=== PATIENT | male | born 1950 | race Caucasian/White ===

== ENCOUNTER 2023-10-19 00:10 | Inpatient (IN) | payer BC ==
[2023-10-19] VITALS (10 sets, daily range): BP systolic 103–139; BP diastolic 57–100; PULSE 129–146; RESP 16–20; TEMP 97.8–98.8; O2SAT 96–97
[~2023-10-19] VITALS: Ht 185.4 cm; Wt 78.1 kg
[2023-10-19 00:58] LABS: MEAN CORPUSCULAR HEMOGLOBIN 31.4 PG (27.0-31.0)
[2023-10-19 01:00] LABS: BASOPHILS # (AUTO) 0.1 X10'3 (0-0.2); BASOPHILS % (AUTO) 0.8 % (0-1); EOSINOPHILS # (AUTO) 0.1 X10'3 (0-0.9); EOSINOPHILS % (AUTO) 1.4 % (0-6); HEMATOCRIT 38.4 % (42.0-52.0); HEMOGLOBIN 13.1 g/dl (14.0-17.9); LYMPHOCYTES # (AUTO) 1.9 X10'3 (1.1-4.8); LYMPHOCYTES % (AUTO) 22.7 % (21-51); MEAN CORPUSCULAR HGB CONC 34.2 g/dL (33.0-36.5); MEAN CORPUSCULAR VOLUME 91.8 FL (78-98); MEAN PLATELET VOLUME 7.6 FL (7.4-10.4); MONOCYTES # (AUTO) 0.5 X10'3 (0-0.9); MONOCYTES % (AUTO) 6.6 % (2-12); NEUTROPHILS # (AUTO) 5.7 X10'3 (1.8-7.7); NEUTROPHILS % (AUTO) 68.5 % (42-75); PLATELET COUNT 232 X10'3 (140-440); RED BLOOD COUNT 4.18 X10'6 (4.70-6.10); RED CELL DISTRIBUTION WIDTH 13.7 % (11.5-14.5); WHITE BLOOD COUNT 8.3 X10'3 (4.5-11.0)
[2023-10-19 01:07] LABS: PROTHROMBIN TIME 10.5 SECONDS (9.0-12.0)
[2023-10-19 01:10] LABS: ALANINE AMINOTRANSFERASE 19 U/L (12-78); ALBUMIN 2.9 G/DL (3.4-5.0); ALBUMIN/GLOBULIN RATIO 0.7 (1.1-1.5); ALKALINE PHOSPHATASE 60 IU/L (46-116); ANION GAP 9 (8-16); ASPARTATE AMINO TRANSFERASE 13 U/L (10-37); BILIRUBIN,TOTAL 0.3 MG/DL (0.1-1.0); BLOOD UREA NITROGEN 16 MG/DL (7-18); BUN/CREATININE RATIO 15.7 (10.0-20.0); CALCIUM 8.3 MG/DL (8.5-10.1); CHLORIDE 104 MMOL/L (99-107); CREATININE 1.02 MG/DL (0.60-1.10); GLUCOSE 101 MG/DL (70-104); POTASSIUM 3.4 MMOL/L (3.5-5.1); SODIUM 141 MMOL/L (135-145); TOTAL CARBON DIOXIDE 28.1 MMOL/L (24-32); TOTAL PROTEIN 7.2 G/DL (6.4-8.2); eCRCL 70 ML/MIN; eGFR 72 ML/MIN
[2023-10-19] MEDS: diltiazem 5mg/ml 5ml inj. IV ONE ×3 (01:11→13:21)
[2023-10-19] MEDS: diltiazem 30mg tablet PO ONE (01:16)
[2023-10-19 01:18] LABS: PRO BRAIN NATRIURETIC PEPTIDE 3138 PG/ML (0-125)
[2023-10-19] MEDS ORDERED: diltiazem-NS 100mg/100ml 100 ML IV SCH ×2 (01:35→17:20)
[2023-10-19] MEDS: amiodarone 150mg/dext, iso-os 100 ML IV ONE (01:48)
[2023-10-19] MEDS ORDERED: magnesium 2GM in 50ml NS 50 ML IV PRN (03:05)
[2023-10-19] MEDS ORDERED: HYDROcodone/acetaminophen 10/325mg tab PO PRN (03:05)
[2023-10-19] MEDS ORDERED: ondansetron/PF 4mg/2ml inj IV PRN (03:05)
[2023-10-19] MEDS ORDERED: potassium Cl 20 mEq SR tablet PO PRN ×2 (03:05)
[2023-10-19] MEDS ORDERED: magnesium Cl slow-release 64mg tablet PO PRN (03:05)
[2023-10-19] MEDS ORDERED: magnesium 4gm in 100ml NS 100 ML IV PRN (03:05)
[2023-10-19] MEDS ORDERED: potassium Cl 40MEQ/1/2NS 520ml 520 ML IV PRN (03:05)
[2023-10-19] MEDS ORDERED: mag hydrox/Alum hydrox/simeth 30ml oral suspension PO PRN (03:05)
[2023-10-19] MEDS ORDERED: HYDROcodone/acetaminophen 5mg/325mg tablet PO PRN (03:05)
[2023-10-19] MEDS ORDERED: acetaminophen 325mg tablet PO PRN ×2 (03:05)
[2023-10-19] MEDS ORDERED: magnesium hydroxide 30ml (MOM) UD suspension PO PRN (03:05)
[2023-10-19] MEDS ORDERED: CLON0.252 PO (04:50)
[2023-10-19] MEDS ORDERED: LISI40TA13 PO (04:52)
[2023-10-19] MEDS ORDERED: ATOR10TA70 PO (04:53)
[2023-10-19] MEDS ORDERED: AMLO2.5T4 PO (04:54)
[2023-10-19] MEDS ORDERED: TRAZ-256 PO (04:55)
[2023-10-19] MEDS ORDERED: TRAZ150T78 PO (04:55)
[2023-10-19] MEDS ORDERED: MELO-102 PO (04:55)
[2023-10-19] MEDS ORDERED: ASPI-611 PO (04:56)
[2023-10-19] MEDS ORDERED: FLUO30CR36 TOP (04:56)
[2023-10-19] MEDS ORDERED: BUPR100T13 PO (04:58)
[2023-10-19] MEDS ORDERED: NEBI5TAB12 PO (04:58)
[2023-10-19] MEDS ORDERED: MULT-1085 PO (04:59)
[2023-10-19] MEDS: apixaban 5mg tablet PO SCH (05:02)
[2023-10-19 05:11] LABS: CHOL/HDL RATIO 2.3 (0.00-4.99); CHOLESTEROL 145 MG/DL (0-200); FREE T4 (FREE THYROXINE) 1.38 NG/DL (0.73-1.40); HDL CHOLESTEROL 63 MG/DL (35-60); LDL CHOLESTEROL 72 MG/DL (50-100); THYROID STIMULATING HORMONE 3.36 ulU/ml (0.34-4.50); TRIGLYCERIDES 49 MG/DL (20-135)
[2023-10-19] MEDS: amiodarone/D5 360MG/200ML BAG 200 ML IV SCH (05:51)
[2023-10-19] MEDS: furosemide 10 MG/1 ML 10ml inj IV ONE (06:52)
[2023-10-19] MEDS: metoprolol succinate 25mg (24-HOUR) SR. Tablet PO SCH (07:35)
[2023-10-19] MEDS: K and/or MAG REPLACEMENT MC SCH (08:00)
[2023-10-19] MEDS: docusate sod 100mg capsule PO SCH (08:00)
[2023-10-19] MEDS: amLODIPine 5mg tablet PO SCH (08:00)
[2023-10-19] MEDS: lisinopril 20mg tablet PO SCH (08:00)
[2023-10-19] MEDS: aspirin 81mg, enteric-coated 1 TAB TABLET.DR PO SCH (09:09)
[2023-10-19] MEDS: diltiazem-NS 100mg/100ml 100 ML IV SCH ×2 (09:11→17:50)
[2023-10-19] MEDS: atorvastatin 10mg tablet PO SCH (10:09)
[2023-10-19 11:34] LABS: D-DIMER 0.63 MG/L FEU (0-0.50)
[2023-10-19] MEDS ORDERED: iohexol 350MG/ML 100ml bottle IV ONE (13:32)
[2023-10-19] MEDS: traZODone 50mg tablet PO SCH (20:49)
[2023-10-19] MEDS: CLONAZEPAM 0.25 MG oral disentigrating tablet (ODT) PO SCH (21:46)
[2023-10-20] VITALS (10 sets, daily range): BP systolic 91–132; BP diastolic 61–97; PULSE 115–138; RESP 16–26; TEMP 97.8–98.7; O2SAT 95–98
[2023-10-20] MEDS ORDERED: non-formulary drug (Aspirin (Aspir 81) 1 TAB) PO SCH (08:00)
[2023-10-20 08:11] LABS: BASOPHILS % (AUTO) 0.5 % (0-1); EOSINOPHILS % (AUTO) 0.3 % (0-6); HEMATOCRIT 35.3 % (42.0-52.0); HEMOGLOBIN 12.1 g/dl (14.0-17.9); LYMPHOCYTES # (AUTO) 1.4 X10'3 (1.1-4.8); MEAN CORPUSCULAR HEMOGLOBIN 31.5 PG (27.0-31.0); MEAN CORPUSCULAR HGB CONC 34.4 g/dL (33.0-36.5); MEAN CORPUSCULAR VOLUME 91.6 FL (78-98); MEAN PLATELET VOLUME 7.8 FL (7.4-10.4); MONOCYTES # (AUTO) 0.7 X10'3 (0-0.9); NEUTROPHILS # (AUTO) 8.1 X10'3 (1.8-7.7); NEUTROPHILS % (AUTO) 78.2 % (42-75); PLATELET COUNT 211 X10'3 (140-440); RED BLOOD COUNT 3.86 X10'6 (4.70-6.10); RED CELL DISTRIBUTION WIDTH 14.1 % (11.5-14.5); WHITE BLOOD COUNT 10.3 X10'3 (4.5-11.0)
[2023-10-20 08:25] LABS: APTT 29 SECONDS (22-32); INR 1.1 INR; PROTHROMBIN TIME 11.3 SECONDS (9.0-12.0)
[2023-10-20] MEDS: buPROPion 75mg tablet PO SCH (08:45)
[2023-10-20 08:53] LABS: ALANINE AMINOTRANSFERASE 15 U/L (12-78); ALBUMIN 2.6 G/DL (3.4-5.0); ALBUMIN/GLOBULIN RATIO 0.6 (1.1-1.5); ALKALINE PHOSPHATASE 43 IU/L (46-116); ANION GAP 10 (8-16); ASPARTATE AMINO TRANSFERASE 12 U/L (10-37); BILIRUBIN,TOTAL 0.9 MG/DL (0.1-1.0); BLOOD UREA NITROGEN 13 MG/DL (7-18); BUN/CREATININE RATIO 16.3 (10.0-20.0); CALCIUM 8.3 MG/DL (8.5-10.1); CHLORIDE 103 MMOL/L (99-107); GLUCOSE 116 MG/DL (70-104); MAGNESIUM 1.9 MG/DL (1.5-2.4); PHOSPHORUS 3.7 MG/DL (2.3-4.5); POTASSIUM 3.5 MMOL/L (3.5-5.1); SODIUM 136 MMOL/L (135-145); TOTAL CARBON DIOXIDE 23.3 MMOL/L (24-32); TOTAL PROTEIN 6.8 G/DL (6.4-8.2); eCRCL 91 ML/MIN; eGFR > 90 ML/MIN
[2023-10-20] MEDS: normal saline 500ml IV soln 500 ML IV PRN (08:57)
[2023-10-20] MEDS: digoxin 250mcg/ml 2ml ampule IV ONE ×3 (11:44→22:15)
[2023-10-20] MEDS: diltiazem-D5W 125mg/125ml 125 ML IV SCH (17:00)
[2023-10-20] MEDS: diltiazem-NS 100mg/100ml 100 ML IV SCH (17:09)
[2023-10-20] MEDS ORDERED: furosemide 40mg/4ml inj IV SCH (17:15)
[2023-10-21] VITALS (15 sets, daily range): BP systolic 109–134; BP diastolic 63–83; PULSE 75–143; RESP 13–20; TEMP 97.4–98.4; O2SAT 92–96
[2023-10-21 07:07] LABS: BASOPHILS # (AUTO) 0.1 X10'3 (0-0.2); BASOPHILS % (AUTO) 0.7 % (0-1); EOSINOPHILS # (AUTO) 0.1 X10'3 (0-0.9); EOSINOPHILS % (AUTO) 0.9 % (0-6); HEMATOCRIT 35.4 % (42.0-52.0); HEMOGLOBIN 12.1 g/dl (14.0-17.9); LYMPHOCYTES # (AUTO) 1.3 X10'3 (1.1-4.8); LYMPHOCYTES % (AUTO) 13.8 % (21-51); MEAN CORPUSCULAR HEMOGLOBIN 31.4 PG (27.0-31.0); MEAN CORPUSCULAR HGB CONC 34.3 g/dL (33.0-36.5); MEAN CORPUSCULAR VOLUME 91.6 FL (78-98); MEAN PLATELET VOLUME 7.6 FL (7.4-10.4); MONOCYTES # (AUTO) 0.8 X10'3 (0-0.9); MONOCYTES % (AUTO) 8.9 % (2-12); NEUTROPHILS % (AUTO) 75.7 % (42-75); PLATELET COUNT 207 X10'3 (140-440); RED BLOOD COUNT 3.86 X10'6 (4.70-6.10); WHITE BLOOD COUNT 9.2 X10'3 (4.5-11.0)
[2023-10-21 07:20] LABS: APTT 29 SECONDS (22-32); INR 1.1 INR; PROTHROMBIN TIME 11.5 SECONDS (9.0-12.0)
[2023-10-21 07:30] LABS: ALANINE AMINOTRANSFERASE 13 U/L (12-78); ALBUMIN 2.6 G/DL (3.4-5.0); ALBUMIN/GLOBULIN RATIO 0.6 (1.1-1.5); ALKALINE PHOSPHATASE 39 IU/L (46-116); ANION GAP 9 (8-16); ASPARTATE AMINO TRANSFERASE 9 U/L (10-37); BLOOD UREA NITROGEN 10 MG/DL (7-18); CALCIUM 8.2 MG/DL (8.5-10.1); CHLORIDE 105 MMOL/L (99-107); CREATININE 0.77 MG/DL (0.60-1.10); GLUCOSE 113 MG/DL (70-104); MAGNESIUM 1.9 MG/DL (1.5-2.4); PHOSPHORUS 3.1 MG/DL (2.3-4.5); POTASSIUM 3.6 MMOL/L (3.5-5.1); SODIUM 139 MMOL/L (135-145); TOTAL PROTEIN 6.8 G/DL (6.4-8.2); eCRCL 94 ML/MIN; eGFR > 90 ML/MIN
[2023-10-21] MEDS: digoxin 125mcg (0.125mg) tablet PO SCH (08:32)
[2023-10-21] MEDS: furosemide 40mg/4ml inj IV SCH (08:33)
[2023-10-21] MEDS: amiodarone/D5 360MG/200ML BAG 250 ML IV SCH (11:05)
[2023-10-21] MEDS ORDERED: amiodarone 150mg/dext, iso-os 100 ML IV ONE (11:05)
[2023-10-21] MEDS: diltiazem-NS 100mg/100ml 100 ML IV SCH (12:50)
[2023-10-21] MEDS ORDERED: amiodarone inj. 450 MG in dextrose 5%-water 241 ML IV SCH (12:55)
[2023-10-21] MEDS: amiodarone 150mg/dext, iso-os 100 ML IV ONE (13:47)
[2023-10-21] MEDS: metoprolol tartrate 25mg tablet PO SCH (19:39)
[2023-10-21] MEDS ORDERED: metoprolol succinate 25mg (24-HOUR) SR. Tablet PO SCH (20:00)
[2023-10-22] VITALS (19 sets, daily range): BP systolic 100–147; BP diastolic 62–95; PULSE 71–170; RESP 11–25; TEMP 97.6–98.7; O2SAT 93–97
[2023-10-22 06:41] LABS: BASOPHILS % (AUTO) 0.6 % (0-1); EOSINOPHILS # (AUTO) 0.2 X10'3 (0-0.9); EOSINOPHILS % (AUTO) 1.9 % (0-6); HEMATOCRIT 36.2 % (42.0-52.0); HEMOGLOBIN 12.3 g/dl (14.0-17.9); LYMPHOCYTES # (AUTO) 1.2 X10'3 (1.1-4.8); LYMPHOCYTES % (AUTO) 14.8 % (21-51); MEAN CORPUSCULAR HEMOGLOBIN 31.3 PG (27.0-31.0); MEAN CORPUSCULAR HGB CONC 34.1 g/dL (33.0-36.5); MEAN CORPUSCULAR VOLUME 91.7 FL (78-98); MEAN PLATELET VOLUME 7.9 FL (7.4-10.4); MONOCYTES # (AUTO) 0.9 X10'3 (0-0.9); MONOCYTES % (AUTO) 10.8 % (2-12); NEUTROPHILS # (AUTO) 5.9 X10'3 (1.8-7.7); NEUTROPHILS % (AUTO) 71.9 % (42-75); PLATELET COUNT 221 X10'3 (140-440); RED BLOOD COUNT 3.95 X10'6 (4.70-6.10); RED CELL DISTRIBUTION WIDTH 13.9 % (11.5-14.5); WHITE BLOOD COUNT 8.3 X10'3 (4.5-11.0)
[2023-10-22 06:45] LABS: ALANINE AMINOTRANSFERASE 10 U/L (12-78); ALBUMIN 2.4 G/DL (3.4-5.0); ALBUMIN/GLOBULIN RATIO 0.6 (1.1-1.5); ALKALINE PHOSPHATASE 39 IU/L (46-116); ANION GAP 7 (8-16); APTT 28 SECONDS (22-32); ASPARTATE AMINO TRANSFERASE 7 U/L (10-37); BILIRUBIN,TOTAL 0.7 MG/DL (0.1-1.0); BLOOD UREA NITROGEN 13 MG/DL (7-18); BUN/CREATININE RATIO 16.5 (10.0-20.0); CALCIUM 8.1 MG/DL (8.5-10.1); CHLORIDE 104 MMOL/L (99-107); CREATININE 0.79 MG/DL (0.60-1.10); GLUCOSE 108 MG/DL (70-104); INR 1.1 INR; MAGNESIUM 1.9 MG/DL (1.5-2.4); PHOSPHORUS 3.5 MG/DL (2.3-4.5); POTASSIUM 3.4 MMOL/L (3.5-5.1); PROTHROMBIN TIME 11.4 SECONDS (9.0-12.0); SODIUM 138 MMOL/L (135-145); TOTAL CARBON DIOXIDE 26.7 MMOL/L (24-32); TOTAL PROTEIN 6.7 G/DL (6.4-8.2); eCRCL 92 ML/MIN; eGFR > 90 ML/MIN
[2023-10-22] MEDS: fentaNYL/PF 50MCG/1 ML 2ML syringe IV ONE (11:30)
[2023-10-22] MEDS: MIDAZolam 1mg/ml 10ml vial IV ONE (11:30)
[2023-10-22] MEDS ORDERED: magnesium 2GM in 50ml NS 50 ML IV PRN (12:50)
[2023-10-22] MEDS ORDERED: potassium Cl 40MEQ/1/2NS 520ml 520 ML IV PRN (12:50)
[2023-10-22] MEDS ORDERED: magnesium Cl slow-release 64mg tablet PO PRN (12:50)
[2023-10-22] MEDS ORDERED: potassium Cl 20 mEq SR tablet PO PRN (12:50)
[2023-10-22] MEDS ORDERED: magnesium 4gm in 100ml NS 100 ML IV PRN (12:50)
[2023-10-22] MEDS: amiodarone 200mg tablet PO SCH (12:58)
[2023-10-22] MEDS: potassium Cl 20 mEq SR tablet PO PRN (12:59)
[2023-10-23 02:00] VITALS: BP 120/71; PULSE 73; RESP 18; TEMP 97.8; O2SAT 96
[2023-10-23 06:00] VITALS: BP 137/71; PULSE 63; RESP 20; TEMP 97.5; O2SAT 98
[2023-10-23 08:00] VITALS: RESP 16; RESP 18; O2SAT 95
[2023-10-23 08:12] LABS: INR 1.1 INR; PROTHROMBIN TIME 11.8 SECONDS (9.0-12.0)
[2023-10-23 08:29] LABS: BASOPHILS % (AUTO) 0.5 % (0-1); EOSINOPHILS # (AUTO) 0.2 X10'3 (0-0.9); EOSINOPHILS % (AUTO) 2.2 % (0-6); HEMATOCRIT 34.2 % (42.0-52.0); HEMOGLOBIN 11.9 g/dl (14.0-17.9); LYMPHOCYTES # (AUTO) 0.9 X10'3 (1.1-4.8); LYMPHOCYTES % (AUTO) 12.3 % (21-51); MEAN CORPUSCULAR HEMOGLOBIN 31.9 PG (27.0-31.0); MEAN CORPUSCULAR HGB CONC 34.9 g/dL (33.0-36.5); MEAN CORPUSCULAR VOLUME 91.5 FL (78-98); MEAN PLATELET VOLUME 7.9 FL (7.4-10.4); MONOCYTES % (AUTO) 13.2 % (2-12); NEUTROPHILS # (AUTO) 5.4 X10'3 (1.8-7.7); NEUTROPHILS % (AUTO) 71.8 % (42-75); PLATELET COUNT 226 X10'3 (140-440); RED BLOOD COUNT 3.74 X10'6 (4.70-6.10); RED CELL DISTRIBUTION WIDTH 13.8 % (11.5-14.5); WHITE BLOOD COUNT 7.5 X10'3 (4.5-11.0)
[2023-10-23 08:30] LABS: ALANINE AMINOTRANSFERASE 13 U/L (12-78); ALBUMIN 2.3 G/DL (3.4-5.0); ALBUMIN/GLOBULIN RATIO 0.5 (1.1-1.5); ALKALINE PHOSPHATASE 44 IU/L (46-116); ANION GAP 6 (8-16); ASPARTATE AMINO TRANSFERASE 10 U/L (10-37); BLOOD UREA NITROGEN 19 MG/DL (7-18); BUN/CREATININE RATIO 19.6 (10.0-20.0); CALCIUM 8.2 MG/DL (8.5-10.1); CHLORIDE 104 MMOL/L (99-107); CREATININE 0.97 MG/DL (0.60-1.10); GLUCOSE 98 MG/DL (70-104); MAGNESIUM 1.9 MG/DL (1.5-2.4); POTASSIUM 4.3 MMOL/L (3.5-5.1); SODIUM 137 MMOL/L (135-145); TOTAL CARBON DIOXIDE 26.6 MMOL/L (24-32); TOTAL PROTEIN 6.6 G/DL (6.4-8.2); eCRCL 75 ML/MIN; eGFR 76 ML/MIN
[2023-10-23] MEDS ORDERED: ASPI-611 PO (09:05)
[2023-10-23] MEDS ORDERED: FURO-150 PO (09:05)
[2023-10-23] MEDS ORDERED: NEBI5TAB12 PO (09:05)
[2023-10-23] MEDS ORDERED: AMI200T PO (09:05)
[2023-10-23] MEDS ORDERED: LISI20TA28 PO (09:05)
[2023-10-23] MEDS: diltiazem 5mg/ml 5ml inj. IV ONE ×2 (09:46→10:56)
[2023-10-23 11:00] VITALS: BP 126/79; PULSE 124; RESP 17; TEMP 98.3; O2SAT 95
[2023-10-23] MEDS: metoprolol tartrate 1mg/ml inj IV SCH (11:10)
[2023-10-23] MEDS ORDERED: ondansetron 4mg rapidly disintigrating tab PO PRN (12:05)
[2023-10-23] MEDS ORDERED: metoprolol tartrate 25mg tablet PO SCH ×2 (13:00→20:00)
[2023-10-23] MEDS: metoprolol tartrate 25mg tablet PO SCH (13:44)
[2023-10-23 15:00] VITALS: BP 110/80; PULSE 138; RESP 10; TEMP 97.3; O2SAT 97
[2023-10-23] MEDS ORDERED: APIX5TAB3 PO (16:34)
[2023-10-23] MEDS ORDERED: METO50TA16 PO (16:41)
[2023-10-24] MEDS ORDERED: furosemide 40mg tablet PO SCH (08:00)
== END 2023-10-23 17:48 | disposition home or self-care (01) | DRG 291 ==
LOC: ER 00:11 → ED HOLD 03:12 → PCU 3S 10:23
PROVIDERS: ADMIT Internal Medicine Pulmonary Disease; ATTEND Family Medicine
PROC: B32T1ZZ Computerized Tomography (CT Scan) of Left Pulmonary Artery using Low Osmolar Contrast (ICD-10-PCS; 2023-10-19)
PROC: B3201ZZ Computerized Tomography (CT Scan) of Thoracic Aorta using Low Osmolar Contrast (ICD-10-PCS; 2023-10-19)
PROC: B32S1ZZ Computerized Tomography (CT Scan) of Right Pulmonary Artery using Low Osmolar Contrast (ICD-10-PCS; 2023-10-19)
PROC: 5A2204Z Restoration of Cardiac Rhythm, Single (ICD-10-PCS; principal; 2023-10-21)
DX: I11.0 Hypertensive heart disease with heart failure (principal); I50.31 Acute diastolic (congestive) heart failure; I48.91 Unspecified atrial fibrillation; E87.6 Hypokalemia; R91.1 Solitary pulmonary nodule; F41.9 Anxiety disorder, unspecified; I08.1 Rheumatic disorders of both mitral and tricuspid valves; N28.9 Disorder of kidney and ureter, unspecified; Z79.899 Other long term (current) drug therapy; Z86.73 Personal history of transient ischemic attack (TIA), and cerebral infarction without residual deficits; Z87.891 Personal history of nicotine dependence; Z90.49 Acquired absence of other specified parts of digestive tract; Z85.47 Personal history of malignant neoplasm of testis
CPT/HCPCS: 36415; 71045; 71275; 76770; 80053; 80061; 80162; 83036; 83735; 83880; 84100; 84132; 84439; 84443; 84484; 85025; 85379; 85610; 85730; 93005; 93306; 93312; 93325; 94760; 99291; A4615; G0378; J0282; J1160; J1940; J2250; J3010; J3490; J7030; J7040; Q9967